=== PATIENT | male | born 1965 | race Caucasian/White ===

== ENCOUNTER 2016-10-10 23:13 | Inpatient (IN) | payer MEDICAID ==
[~2016-10-10] VITALS: Ht 175.3 cm; Wt 101.7 kg
[2016-10-11 02:27] LABS: BASOPHIL % 0.3 % (0-2); RED CELL DISTRIBUTION WIDTH 12.3 % (11.5-14.5)
[2016-10-11 02:29] LABS: PLATELET COUNT 125 x10^3mcL (130-400)
[2016-10-11 02:41] LABS: CALCIUM 8.9 mg/dL (8.5-10.1); CARBON DIOXIDE 29.6 mmol/L (21-32); CHLORIDE SERUM 97 mmol/L (98-107); CREATININE SERUM 0.9 mg/dL (0.7-1.3); GFR1 > 60 mL/min; GLUCOSE SERUM 126 mg/dL (74-106); POTASSIUM SERUM 3.6 mmol/L (3.5-5.1); SODIUM SERUM 135 mmol/L (136-145)
[2016-10-11 02:45] LABS: ALBUMIN 3.6 g/dL (3.4-5.0); ALKALINE PHOSPHATASE 197 U/L (46-116); ALT/SGPT 134 U/L (16-63); AST/SGOT 93 U/L (15-37); BILIRUBIN TOTAL 1.14 mg/dL (0.20-1.00); TOTAL PROTEIN, SERUM 7.1 g/dL (6.4-8.2)
[2016-10-11 02:58] LABS: CK-MB 1.9 ng/mL (0-3.6)
[2016-10-11 04:36] LABS: FREE T4 0.92 ng/dL (0.76-1.46); FREE THYROXINE INDEX 2.9 ug/dL (1.4-4.5); T4(THYROXINE) 8.4 ug/dL (4.7-13.3)
[2016-10-11 04:42] LABS: T3 TOTAL 1.62 ng/mL
[2016-10-11] MEDS ORDERED: BENAZEPRIL HYDR40 M1 PO (05:01)
[2016-10-11] MEDS ORDERED: HYDROCHLOROTHIA25 MG PO (05:02)
[2016-10-11] MEDS ORDERED: HYDRALAZINE HCL25 MG PO (05:03)
[2016-10-11] MEDS ORDERED: METFORMIN HCL1000 MG PO (05:04)
[2016-10-11 06:14] VITALS: BP 147/80
[2016-10-11 10:39] VITALS: BP 141/95
[2016-10-11 14:02] VITALS: BP 116/68
[2016-10-11 18:05] VITALS: BP 118/77
[2016-10-11 18:27] LABS: microscopic required? NO
[2016-10-11 18:39] LABS: urine erythrocyte NEGATIVE (NEGATIVE)
[2016-10-11 18:48] LABS: AMPHETAMINE QUAL UR NONE DETECTED (NEG <=1000)
[2016-10-11 22:00] VITALS: BP 138/90
[2016-10-12 06:23] VITALS: BP 149/96
[2016-10-12 08:55] LABS: BASOPHIL % 0.4 % (0-2); PLATELET COUNT 138 x10^3mcL (130-400); RED CELL DISTRIBUTION WIDTH 12.6 % (11.5-14.5)
[2016-10-12 08:59] LABS: CALCIUM 8.8 mg/dL (8.5-10.1); CARBON DIOXIDE 29.3 mmol/L (21-32); CHLORIDE SERUM 98 mmol/L (98-107); CREATININE SERUM 0.7 mg/dL (0.7-1.3); GFR1 > 60 mL/min; POTASSIUM SERUM 3.5 mmol/L (3.5-5.1); SODIUM SERUM 135 mmol/L (136-145)
[2016-10-12 09:18] LABS: GLUCOSE SERUM 121 mg/dL (74-106)
[2016-10-12 11:04] VITALS: BP 145/76
[2016-10-12 13:39] VITALS: Ht 175.3 cm; Wt 101.7 kg
[2016-10-12 14:16] VITALS: BP 136/89
[2016-10-12 17:24] VITALS: BP 120/81
[2016-10-12 21:37] VITALS: BP 133/87
[2016-10-13 06:36] VITALS: BP 132/96
[2016-10-13 09:20] VITALS: BP 146/91
[2016-10-13] MEDS ORDERED: APR10 PO (12:53)
[2016-10-13] MEDS ORDERED: LOT20 PO (12:56)
[2016-10-13 13:25] VITALS: BP 141/93
[2016-10-13 13:28] VITALS: BP 146/91
== END 2016-10-13 13:55 | disposition home or self-care (01) | DRG 243 ==
LOC: ED 23:13 → DU 10-11 03:44
PROVIDERS: Emergency Medicine; Family Medicine; ADMIT Family Medicine
DX: K21.9 Gastro-esophageal reflux disease without esophagitis (principal); E11.59 Type 2 diabetes mellitus with other circulatory complications; D68.69 Other thrombophilia; E11.65 Type 2 diabetes mellitus with hyperglycemia; E87.1 Hypo-osmolality and hyponatremia; F10.10 Alcohol abuse, uncomplicated; F17.210 Nicotine dependence, cigarettes, uncomplicated; Z79.84 Long term (current) use of oral hypoglycemic drugs; Z68.33 Body mass index [BMI] 33.0-33.9, adult
CPT/HCPCS: 80307; 82962; 83880; 84439; G0480; J7030; Q0092